=== PATIENT | male | born 1990 | race Caucasian/White ===

== ENCOUNTER → 2022-02-02 13:37 | Outpatient (CLI) | payer OTHER, SELFPAY ==
--- NOTE | ~2022-02-02 | XR_ITS ---
EXAMINATION: XR chest 2V DATE: 02/02/2022 14:09 INDICATION: Wheezing TECHNIQUE: PA and lateral views of the chest are obtained. COMPARISON: None available FINDINGS: The lungs are free of acute opacities. There is no pleural effusion or pneumothorax. The ca rdiomediastinal silhouette is normal. The visualized bones and soft tissues are unremarkable. IMPRESSION: 1. No acute cardiopulmonary abnormality. Reviewed, dictated and finalized at location F.
== END ==
DX: J45.909 Unspecified asthma, uncomplicated (principal)
CPT/HCPCS: 71046

== ENCOUNTER 2024-04-21 17:00 | Outpatient (CLI) | payer OTHER, SELFPAY ==
[2024-04-24 14:24] LABS: Homocysteine 8.1 umol/L (<11.4)
[2024-04-25 22:49] LABS: Antithrombin III Activity 116 % normal (80-135)
[2024-04-27 14:38] LABS: Protein S Antigen, Free 139 % normal (57-171)
[2024-04-27 20:13] LABS: Lupus dRVVT Screen 38 sec (< OR = 45); PTT-LA Screen 33 sec (< OR = 40)
[2024-04-28 13:47] LABS: PTT-LA Additional Testing Not Indicated
[2024-04-29 17:03] LABS: Factor V (Leiden) Mutation NEGATIVE
== END 2024-04-21 17:01 | disposition home or self-care (01) ==
LOC: ANHLAB 17:07
PROVIDERS: Visit Provider Internal Medicine Hematology & Oncology
DX: D68.69 Other thrombophilia (principal)
CPT/HCPCS: 36415; 81240; 81241; 83090; 85300; 85303; 85306; 85613; 85730; 86146

== ENCOUNTER 2024-06-23 04:53 | Emergency (ER) | payer SELFPAY ==
--- NOTE | ~2024-06-23 | CT_ITS ---
CT of the Abdomen and Pelvis: Indication: Abdominal pain Technique: 2.5 mm axial scans were obtained through the abdomen and pelvis following intravenous adm inistration of 100 cc of Omnipaque 350. Dose reduction technique was used on this scan by utilizing a utomated exposure control and iterative reconstruction technique. The dose-length product (DLP) was 1 086.40 mGy-cm. Findings: Scans through the lung bases are unremarkable. The liver, spleen, pancreas, gallbladder, adrenals and left kidney are within normal limits. There is a 5 mm stone at the proximal right ureter (axial image 90), with minimal fullness the right renal co llecting system. No evidence of aortic aneurysm. No lymphadenopathy. No bowel obstruction or bowel wall thickening. There is no evidence to suggest acute appendicitis. Images through the pelvis were performed. Urinary bladder unremarkable. No pelvic mass seen. No ascit es. Impression: 5 mm proximal right ureteral stone with mild fullness of the right renal collecting system. Reviewed, dictated and finalized at location . R SUPERVISOR Impression: 5 mm proximal right ureteral stone with mild fullness of the right renal collec ting system.
--- NOTE | 2024-06-23 05:00 | ED.GENADULT ---
HPI - General Adult General Chief complaint: Abdominal Pain Stated complaint: think it kidney stones Time Seen by Provider: 06/23/24 04:58 Source: patient and other Mode of arrival: ambulatory Limitations: no limitations History of Present Illness HPI narrative: Patient presents with acute onset right flank pain radiating into his right abdomen. He is concerned he has a kidney stone. He has a history of passing 1 kidney stone previously and states that it took approximately 1 week to pass. The has been having pain for approximately 1 prior to arrival. He tried taking a Flomax at home that was a friend's. He is experiencing 10 of 10 pain associated with nausea. He denies any dysuria or urinary urgency or frequency. He denies gross hematuria although he does note that his urine has been discolored. He has been having subjective fevers. Does not follow regularly with urologist. Last oral intake was soup at 10:00 p.m.. Not on anticoagulation. Last bowel movement was at 8:00 p.m. and he states he has been constipated but denies any diarrhea or bloody stools. Related Data Allergies Allergy/AdvReac Type Severity Reaction Status Date / Time No Known Allergies Allergy Unknown Unverified 07/11/15 02:23 [facility] Past Medical History Medical History History of renal calculi Exam Narrative: GENERAL: Well-appearing, well-nourished, and in no acute distress. HEAD: Normocephalic, atraumatic. EYES: Non injected, non icteric ENT: Nares clear, no rhinorrhea or epistaxis. NECK: Supple. CHEST: Speaking in full sentences. No respiratory distress. HEART: Regular rate and rhythm. . ABDOMEN: Soft, nondistended. Mild tenderness to palpation in the right upper and lower quadrants without rigidity or guarding. Not peritoneal /BACK: No CVA tenderness bilaterally EXTREMITIES: Normal range of motion. No lower extremity edema. SKIN: Warm, dry, no rash. NEURO: No focal deficits. Alert and oriented x3. PSYCH: Normal mood and affect. Course Vital Signs Vital signs: Vital Signs Temperature 97.4 F L 06/23/24 05:03 Pulse Rate 74 06/23/24 05:03 Respiratory Rate 14 06/23/24 05:03 Blood Pressure 142/90 H 06/23/24 05:03 Pulse Oximetry 98 06/23/24 05:03 Temperature 97.4 F L 06/23/24 05:03 Pulse Rate 70 06/23/24 07:06 Respiratory Rate 15 06/23/24 07:06 Blood Pressure 136/82 06/23/24 07:06 Pulse Oximetry 99 06/23/24 07:06 Medical Decision Making MDM Narrative Medical decision making narrative: Patient presents with unilateral flank pain. He is concerned about kidney stone as he has had 1 previously. In the emergency department he is afebrile with vital signs notable for mild hypertension. He is given narcotic analgesic medication as well as an antiemetic. He had already taken Flomax at home. He has a slight leukocytosis. Lipase is somewhat elevated although not greater than 3 times the upper limit of normal. He does have evidence of a ureteral stone as per below. Ketorolac ordered. Patient discharged with prescription for NSAID, Flomax, and Zofran. Advised to strain urine follow up with Urology and provided a referral for this. After discharge instructions have been printed, patient does ask the nurse about the stronger pain medicine. Confirmed his preferred pharmacy and a prescription for narcotic medication was electronically sent. Differential Diagnosis Differential Diagnosis: Kidney stone, pyelonephritis, constipation, biliary etiology, diverticulitis, pancreatitis Vital Signs Vital Signs: Vital Signs Temperature 97.4 F L 06/23/24 05:03 Pulse Rate 74 06/23/24 05:03 Respiratory Rate 14 06/23/24 05:03 Blood Pressure 142/90 H 06/23/24 05:03 Pulse Oximetry 98 06/23/24 05:03 Temperature 97.4 F L 06/23/24 05:03 Pulse Rate 70 06/23/24 07:06 Respiratory Rate 15 06/23/24 07:06 Blood Pressure 136/82 06/23/24 07:06 Pulse Oximetry 99 06/23/24 07:06 Lab Data Lab results reviewed: Yes I reviewed the patient's lab results. Lab results narrative: Hyperglycemia without anion gap acidosis 06/23/24 05:21 06/23/24 05:21 Labs: Lab Results 06/23/24 Range/Units 05:21 WBC 13.2 H (4.5-10.0) K/mm3 RBC 5.25 (4.6-6.20) M/mm3 Hgb 14.9 (14.0-18.0) g/dL Hct 45.3 (42.0-52.0) % MCV 86.3 (80-100) fl MCH 28.4 (26-34) pg MCHC 32.9 (32-36) g/dl RDW 12.8 (11.5-14.5) % Plt Count 351 (150-375) k/mm3 MPV 9.1 (7.4-10.4) fl Immature Gran % (Auto) 0.4 (0-0.5) % Neut % (Auto) 75.0 H (45.5-73.1) % Lymph % (Auto) 15.7 L (18.3-44.2) % [place] % (Auto) 7.2 (2.6-8.5) % Eos % (Auto) 1.2 (0-4.4) % Baso % (Auto) 0.5 (0.2-1.2) % Lymph # (Auto) 2.08 (0.9-3.2) K/mm3 [place] # (Auto) 1.0 H (0.1-0.6) K/mm3 Eos # (Auto) 0.2 (0-0.3) K/mm3 Baso # (Auto) 0.1 (0.0-0.1) K/mm3 Abs Immat Gran (auto) 0.05 H (0.00-0.031) K/mm3 Absolute Neuts (auto) 9.9 H (1.3-6.7) K/mm3 Absolute Nucleated RBC 0.000 (0.0-0.012) K/mm3 Nucleated RBC % 0.0 (0.0-0.2) % Sodium 137 (137-145) mmol/L Potassium 4.1 (3.4-5.0) mmol/L Chloride 101 (98-107) mmol/L Carbon Dioxide 27 (22-30) mmol/L Anion Gap 9 (4-12) mmol/L BUN 13 (9-20) mg/dL Creatinine 1.10 (0.7-1.3) mg/dL Estim Creat Clear Calc 101 ml/min Estimated GFR > 60 (59 - ) Glucose 154 H (65-110) mg/dL Calcium 9.1 (8.4-10.2) mg/dL Total Bilirubin 0.5 (0.2-1.3) mg/dL AST 25 (17-59) U/L ALT 20 (6-50) U/L Alkaline Phosphatase 115 (38-126) U/L Total Protein 9.0 H (6.3-8.2) g/dL Albumin 4.6 (3.5-5.1) g/dL Lipase 460 H (23-300) U/L Imaging Data Radiologist's impression: Impressions Abdomen/Pelvis CT 06/23/24 06:10 Impression: 5 mm proximal right ureteral stone with mild fullness of the right renal collecting system. Discharge Plan Discharge Clinical Impression: Right ureteral stone, Acute right flank pain, Leukocytosis, Hyperglycemia, Elevated lipase Patient Disposition: Home, Self-Care Condition: Stable Instructions: Antibiotic Form, How to Strain Your Urine (ED), Flank Pain (ED), Ureteral Stones (ED) Additional Instructions: You do have a 5 mm stone in the right ureter. Given its size and location you should be able to pass it without intervention. This process is helped along with a combination of the antinausea medication at oral disintegrating ondansetron/Zofran so that you can maintain your hydration and take the other medications. Ibuprofen is a nonsteroidal anti-inflammatory medication that works for both pain as well as inflammation and works at the kidney to help it flush. The Flomax/tamsulosin aids in expulsion. Strain your urine and can take the stone to follow up with the urologist listed below if you would like. Return to the ED if any new/worsening symptoms such as intractable pain, intractable nausea or vomiting, fever greater than 100.4? F, etc. Prescriptions: New ibuprofen 600 mg tablet 600 mg PO TID PRN (Reason: pain) Qty: 30 0RF ondansetron 4 mg tablet,disintegrating 4 mg PO Q8H PRN (Reason: nausea and vomiting) Qty: 10 0RF tamsulosin [Flomax] 0.4 mg capsule 0.4 mg PO HS Qty: 14 0RF hydrocodone-acetaminophen 5-325 mg tablet 1 tablet PO Q8H PRN (Reason: pain) Qty: 10 0RF Follow-up/Referrals: Blas Delacruz MD [Physician] - (urology) UNKNOWN,DOCTOR [Non-Staff] - Stand Alone Forms: Work/School Release IP Time of Disposition: 06:46
[2024-06-23 05:03] VITALS: BP 142/90; PULSE 74; RESP 14; TEMP 36.3; O2SAT 98
[2024-06-23] MEDS: ONDANSETRON INJ 4 MG/2 ML VIAL IV PUSH (05:10)
[2024-06-23] MEDS: MORPHINE SULFATE (*CRX) 4 MG/ML INJ IV PUSH (05:25)
[2024-06-23 05:29] LABS: Basophils Absolute Auto 0.1 K/mm3 (0.0-0.1); Basophils Percent Auto 0.5 % (0.2-1.2); Eosinophils Absolute Auto 0.2 K/mm3 (0-0.3); Eosinophils Percent Auto 1.2 % (0-4.4); Hematocrit 45.3 % (42.0-52.0); Hemoglobin 14.9 g/dL (14.0-18.0); Immature Granulocyte Absolute 0.05 K/mm3 (0.00-0.031); Immature Granulocyte Percent A 0.4 % (0-0.5); Lymphocytes Absolute Auto 2.08 K/mm3 (0.9-3.2); Lymphocytes Percent Auto 15.7 % (18.3-44.2); Mean Corpuscular HGB Conc 32.9 g/dl (32-36); Mean Corpuscular Hemoglobin 28.4 pg (26-34); Mean Corpuscular Volume 86.3 fl (80-100); Mean Platelet Volume 9.1 fl (7.4-10.4); Monocytes Percent Auto 7.2 % (2.6-8.5); Neutrophils Absolute Auto 9.9 K/mm3 (1.3-6.7); Platelet Count Result 351 k/mm3 (150-375); Red Blood Count 5.25 M/mm3 (4.6-6.20); Red Cell Distribution Width 12.8 % (11.5-14.5); White Blood Count 13.2 K/mm3 (4.5-10.0)
[2024-06-23 05:41] LABS: Alanine Aminotransferase 20 U/L (6-50); Albumin Level 4.6 g/dL (3.5-5.1); Alkaline Phosphatase 115 U/L (38-126); Anion Gap 9 mmol/L (4-12); Aspartate Amino Transferase 25 U/L (17-59); Bilirubin,Total 0.5 mg/dL (0.2-1.3); Blood Urea Nitrogen 13 mg/dL (9-20); Calcium 9.1 mg/dL (8.4-10.2); Carbon Dioxide 27 mmol/L (22-30); Chloride 101 mmol/L (98-107); Estimated CRCL calculation 101 ml/min; Estimated Glomerular Filt Rate > 60; Glucose 154 mg/dL (65-110); Lipase 460 U/L (23-300); Potassium 4.1 mmol/L (3.4-5.0); Sodium 137 mmol/L (137-145)
--- NOTE | 2024-06-23 06:30 | PC.NURSE ---
Pt has been asked 3 times to provide a urine sample and states he is unable to. States he will try in a little bit.
[2024-06-23] MEDS: KETOROLAC 15 MG/ML VIAL (*BKC) IV PUSH (07:02)
[2024-06-23 07:06] VITALS: BP 136/82; PULSE 70; RESP 15; O2SAT 99
== END 2024-06-23 07:08 | disposition home or self-care (01) ==
PROVIDERS: Emergency Provider Student in an Organized Health Care Education/Training Program
DX: N20.1 Calculus of ureter (principal); D72.829 Elevated white blood cell count, unspecified; R73.9 Hyperglycemia, unspecified; R74.01 Elevation of levels of liver transaminase levels
CPT/HCPCS: 36415; 74177; 80053; 83690; 85025; 96374; 96375; 99284; A9270; J1885; J2270; J2405; Q9967

== ENCOUNTER 2024-06-24 08:56 | Emergency (ER) | payer SELFPAY ==
--- NOTE | ~2024-06-24 | XR_ITS ---
XR abdomen/kub 1V Ordering provider: Loli Guerrero PA-C History: . ureterolithiasis, DX RT SIDE STONE YESTERDAY. PAIN WORSE NOW . Comparison: None. FINDINGS: BOWEL: Nonobstructive bowel gas pattern. ORGANOMEGALY: None. SIGNIFICANT PATHOLOGIC CALCIFICATIONS: Stone in the right renal pelvis or upper ureter area. OTHER: No free air is seen under the diaphragm. IMPRESSION: NO ACUTE ABDOMINAL FINDINGS. Stone in the right renal pelvis or upper ureter. Reviewed, dictated and finalized at location A. [employer]
[2024-06-24 08:56] VITALS: BP 150/105; PULSE 82; RESP 16; TEMP 37.2; O2SAT 97
--- NOTE | 2024-06-24 10:54 | ED_ITS ---
HPI - Male Genitourinary General Chief complaint: Urogenital-Male <Loli Guerrero PA-C - Last Filed: 06/24/24 17:31> Stated complaint: kidney stone <Loli Guerrero PA-C - Last Filed: 06/24/24 17:31> Time Seen by Provider: 06/24/24 10:54 <Loli Guererro PA-C - Last Filed: 06/24/24 17:31> Focused HPI: This is a 33 year old male that presents to the ER for right flank pain and right abdominal pain. Reports nausea and vomiting. Denies fevers, dysuria, hematuria, diarrhea. GENERAL: Well-appearing, well-nourished, and in no acute distress. HEAD: Normocephalic, atraumatic. CHEST: Clear to auscultation. ?No respiratory distress. HEART: Regular rate and rhythm.? NEURO: ?Alert and oriented x3. Patient screened in triage and initial orders placed.? ?Additional care and disposition to be based upon?diagnostic testing and treatment. <Loli Guerrero PA-C - Last Filed: 06/24/24 17:31> History of Present Illness HPI Narrative: I agree with the above HPI <Kai Herrera MD - Last Filed: 06/24/24 19:15> Related Data Allergies/Adverse reactions: Allergies Allergy/AdvReac Type Severity Reaction Status Date / Time Sulfa (Sulfonamide Allergy Hives Verified 06/24/24 12:18 Antibiotics) <Loli Guerrero PA-C - Last Filed: 06/24/24 17:31> Review of Systems Review of Systems: CONSTITUTIONAL: Denies fever GASTROINTESTINAL: Denies abdominal pain, nausea, vomiting GENITOURINARY: Denies dysuria or hematuria. <Loli Guerrero PA-C - Last Filed: 06/24/24 17:31> All systems reviewed & are unremarkable except as noted in HPI and below <Loli Guerrero PA-C - Last Filed: 06/24/24 17:31> PMFSH Past Medical History Medical History: Medical History History of renal calculi <Loli Guerrero PA-C - Last Filed: 06/24/24 17:31> Social History Social History: Social History (Updated 06/24/24 @ 17:30 by Loli Guerrero PA-C) Substance use: never <Loli Guerrero PA-C - Last Filed: 06/24/24 17:31> Exam Narrative: GENERAL: Well-appearing, well-nourished, and in no acute distress. HEAD: Normocephalic, atraumatic. EYES: EOMI. CHEST: Clear to auscultation. No respiratory distress. No wheezes rales or rhonchi HEART: Regular rate and rhythm. No murmur heard. Normal peripheral pulses. ABDOMEN: Soft, nontender, nondistended, normal active bowel sounds. EXTREMITIES: Normal range of motion. No edema. SKIN: Warm, dry, no rash. NEURO: No focal deficits. Alert and oriented x3. PSYCH: Normal mood and affect <Loli Guerrero PA-C - Last Filed: 06/24/24 17:31> Course Vital Signs Vital signs: Vital Signs Temperature 98.9 F 06/24/24 08:56 Pulse Rate 82 06/24/24 08:56 Respiratory Rate 16 06/24/24 08:56 Blood Pressure 150/105 H 06/24/24 08:56 Pulse Oximetry 97 06/24/24 08:56 Temperature 97.9 F 06/24/24 15:29 Pulse Rate 96 06/24/24 15:29 Respiratory Rate 15 06/24/24 15:29 Blood Pressure 134/90 06/24/24 15:29 Pulse Oximetry 96 06/24/24 15:29 <Loli Guerrero PA-C - Last Filed: 06/24/24 17:31> Vital Signs Temperature 98.9 F 06/24/24 08:56 Pulse Rate 82 06/24/24 08:56 Respiratory Rate 16 06/24/24 08:56 Blood Pressure 150/105 H 06/24/24 08:56 Pulse Oximetry 97 06/24/24 08:56 Temperature 97.9 F 06/24/24 15:29 Pulse Rate 96 06/24/24 15:29 Respiratory Rate 15 06/24/24 15:29 Blood Pressure 134/90 06/24/24 15:29 Pulse Oximetry 96 06/24/24 15:29 <Kai Herrera MD - Last Filed: 06/24/24 19:15> MDM - Male Genitourinary MDM Narrative Medical decision making narrative: 33-year-old male with recent diagnosis of a 5 mm right-sided ureteral calculi presented emergency department for evaluation for worsening pain and intractable nausea and vomiting. KUB does confirm that the patient still has stone in the proximal ureter. Patient did feel improved with rehydration and pain control in the emergency department. Patient was evaluated by urologic services and they do recommend that the patient returned on Saturday to be scoped. They recommend the patient be NPO after midnight. patient was well-appearing at time of discharge to the emergency department. <Kai Herrera MD - Last Filed: 06/24/24 19:15> Differential Diagnosis Differential diagnosis: Likely urinary tract infection, acute retention of urine and other <Kai Herrera MD - Last Filed: 06/24/24 19:15> Lab Data Attestation: I reviewed the patient's lab results. <Kai Herrera MD - Last Filed: 06/24/24 19:15> Result diagrams: 06/24/24 12:26 06/24/24 12:26 <Loli Guerrero PA-C - Last Filed: 06/24/24 17:31> Labs: Lab Results 06/24/24 Range/Units 12:26 WBC 20.2 H (4.5-10.0) K/mm3 RBC 5.28 (4.6-6.20) M/mm3 Hgb 15.3 (14.0-18.0) g/dL Hct 45.8 (42.0-52.0) % MCV 86.7 (80-100) fl MCH 29.0 (26-34) pg MCHC 33.4 (32-36) g/dl RDW 13.1 (11.5-14.5) % Plt Count 347 (150-375) k/mm3 MPV 9.0 (7.4-10.4) fl Immature Gran % (Auto) 0.4 (0-0.5) % Neut % (Auto) 89.2 H (45.5-73.1) % Lymph % (Auto) 4.7 L (18.3-44.2) % [place] % (Auto) 5.4 (2.6-8.5) % Eos % (Auto) 0.0 (0-4.4) % Baso % (Auto) 0.3 (0.2-1.2) % Lymph # (Auto) 0.95 (0.9-3.2) K/mm3 [place] # (Auto) 1.1 H (0.1-0.6) K/mm3 Eos # (Auto) 0.0 (0-0.3) K/mm3 Baso # (Auto) 0.1 (0.0-0.1) K/mm3 Abs Immat Gran (auto) 0.09 H (0.00-0.031) K/mm3 Absolute Neuts (auto) 18.0 H (1.3-6.7) K/mm3 Absolute Nucleated RBC 0.000 (0.0-0.012) K/mm3 Nucleated RBC % 0.0 (0.0-0.2) % Sodium 139 (137-145) mmol/L Potassium 4.5 (3.4-5.0) mmol/L Chloride 102 (98-107) mmol/L Carbon Dioxide 26 (22-30) mmol/L Anion Gap 11 (4-12) mmol/L BUN 16 (9-20) mg/dL Creatinine 1.20 (0.7-1.3) mg/dL Estim Creat Clear Calc 93 ml/min Estimated GFR > 60 (59 - ) Glucose 144 H (65-110) mg/dL Calcium 9.3 (8.4-10.2) mg/dL Total Bilirubin 0.5 (0.2-1.3) mg/dL AST 54 (17-59) U/L ALT 22 (6-50) U/L Alkaline Phosphatase 116 (38-126) U/L Total Protein 9.0 H (6.3-8.2) g/dL Albumin 5.0 (3.5-5.1) g/dL Urine Color Yellow (Yellow) Urine Appearance Turbid H (Clear) Urine pH 7.0 (5.0-9.0) Ur Specific [place] 1.025 (1.001-1.035) Urine Protein Trace (Negative) mg/dL Urine Glucose (UA) Negative (Negative) mg/dL Urine Ketones 3+ H (Negative) mg/dL Ur Blood (Man) 2+ H (Negative) Urine Nitrate Negative (Negative) Urine Bilirubin Negative (Negative) Urine Urobilinogen 0.2 (<2.0) mg/dL Leukocyte Esterase Rfl Negative (Negative) AMADOR/UL Urine RBC 51-100 H (0-2) /hpf Urine WBC 0-5 (0-3) /hpf Ur Squamous Epith Cells None seen (Few) /hpf Urine Bacteria None seen /hpf Urine Casts 0-2 <Loli Guerrero PA-C - Last Filed: 06/24/24 17:31> Lab Results 06/24/24 Range/Units 12:26 WBC 20.2 H (4.5-10.0) K/mm3 RBC 5.28 (4.6-6.20) M/mm3 Hgb 15.3 (14.0-18.0) g/dL Hct 45.8 (42.0-52.0) % MCV 86.7 (80-100) fl MCH 29.0 (26-34) pg MCHC 33.4 (32-36) g/dl RDW 13.1 (11.5-14.5) % Plt Count 347 (150-375) k/mm3 MPV 9.0 (7.4-10.4) fl Immature Gran % (Auto) 0.4 (0-0.5) % Neut % (Auto) 89.2 H (45.5-73.1) % Lymph % (Auto) 4.7 L (18.3-44.2) % [place] % (Auto) 5.4 (2.6-8.5) % Eos % (Auto) 0.0 (0-4.4) % Baso % (Auto) 0.3 (0.2-1.2) % Lymph # (Auto) 0.95 (0.9-3.2) K/mm3 [place] # (Auto) 1.1 H (0.1-0.6) K/mm3 Eos # (Auto) 0.0 (0-0.3) K/mm3 Baso # (Auto) 0.1 (0.0-0.1) K/mm3 Abs Immat Gran (auto) 0.09 H (0.00-0.031) K/mm3 Absolute Neuts (auto) 18.0 H (1.3-6.7) K/mm3 Absolute Nucleated RBC 0.000 (0.0-0.012) K/mm3 Nucleated RBC % 0.0 (0.0-0.2) % Sodium 139 (137-145) mmol/L Potassium 4.5 (3.4-5.0) mmol/L Chloride 102 (98-107) mmol/L Carbon Dioxide 26 (22-30) mmol/L Anion Gap 11 (4-12) mmol/L BUN 16 (9-20) mg/dL Creatinine 1.20 (0.7-1.3) mg/dL Estim Creat Clear Calc 93 ml/min Estimated GFR > 60 (59 - ) Glucose 144 H (65-110) mg/dL Calcium 9.3 (8.4-10.2) mg/dL Total Bilirubin 0.5 (0.2-1.3) mg/dL AST 54 (17-59) U/L ALT 22 (6-50) U/L Alkaline Phosphatase 116 (38-126) U/L Total Protein 9.0 H (6.3-8.2) g/dL Albumin 5.0 (3.5-5.1) g/dL Urine Color Yellow (Yellow) Urine Appearance Turbid H (Clear) Urine pH 7.0 (5.0-9.0) Ur Specific [place] 1.025 (1.001-1.035) Urine Protein Trace (Negative) mg/dL Urine Glucose (UA) Negative (Negative) mg/dL Urine Ketones 3+ H (Negative) mg/dL Ur Blood (Man) 2+ H (Negative) Urine Nitrate Negative (Negative) Urine Bilirubin Negative (Negative) Urine Urobilinogen 0.2 (<2.0) mg/dL Leukocyte Esterase Rfl Negative (Negative) AMADOR/UL Urine RBC 51-100 H (0-2) /hpf Urine WBC 0-5 (0-3) /hpf Ur Squamous Epith Cells None seen (Few) /hpf Urine Bacteria None seen /hpf Urine Casts 0-2 <Kai Herrera MD - Last Filed: 06/24/24 19:15> Imaging Data Radiologist's impression: ITS Impressions Abdomen X-Ray 06/24/24 12:12 IMPRESSION: NO ACUTE ABDOMINAL FINDINGS. Stone in the right renal pelvis or upper ureter. <Loli Guerrero PA-C - Last Filed: 06/24/24 17:31> Critical Care Time Critical Care Time Critical Care Time: No <Loli Guerrero PA-C - Last Filed: 06/24/24 17:31> Discharge Plan Discharge Clinical Impression: Calculi, ureter <MANPREET Fountain Last Filed: 06/24/24 17:31> Patient Disposition: Home, Self-Care <MANPREET Fountain Last Filed: 06/24/24 17:31> Condition: Stable <MANPREET Fountain Last Filed: 06/24/24 17:31> Instructions: Antibiotic Form <MANPREET Fountain Last Filed: 06/24/24 17:31> Additional Instructions: avoid NSAIDs. Robertson for pain control. Zofran as needed for nausea control. you are being scheduled for a procedure on Saturday. if you have any worsening symptoms then please call or return to the emergency department. <Loli Guerrero PA-C - Last Filed: 06/24/24 17:31> Prescriptions: New hydrocodone-acetaminophen 5-325 mg tablet 1 tablet PO Q12H PRN (Reason: pain) Qty: 20 0RF ondansetron 4 mg tablet,disintegrating 4 mg PO Q8H PRN (Reason: nausea and vomiting) Qty: 20 0RF No Action ibuprofen 600 mg tablet 600 mg PO TID PRN (Reason: pain) Qty: 30 0RF ondansetron 4 mg tablet,disintegrating 4 mg PO Q8H PRN (Reason: nausea and vomiting) Qty: 10 0RF tamsulosin [Flomax] 0.4 mg capsule 0.4 mg PO HS Qty: 14 0RF hydrocodone-acetaminophen 5-325 mg tablet 1 tablet PO Q8H PRN (Reason: pain) Qty: 10 0RF <Loli Guerrero PA-C - Last Filed: 06/24/24 17:31> Follow-up/Referrals: Justin Jasso MD [Physician] - PHYSICIAN,BACKREST ASSEMBLER [Primary Care Provider] - <MANPREET Fountain Last Filed: 06/24/24 17:31>
[2024-06-24 12:17] VITALS: BP 145/92; PULSE 76; RESP 14; TEMP 36.4; O2SAT 100
[2024-06-24] MEDS: SODIUM CHLORIDE 0.9% IV 1,000 ML 999 ML IV CONT (12:28)
[2024-06-24] MEDS: ONDANSETRON INJ 4 MG/2 ML VIAL IV PUSH ×2 (12:29→13:04)
[2024-06-24] MEDS: MORPHINE SULFATE (*CRX) 4 MG/ML INJ IV PUSH (12:30)
[2024-06-24 12:42] LABS: Add Urine Microscopic? YES; Appearance Urine Turbid (Clear); Bacteria Urine None Seen /hpf; Bilirubin Urine Negative (Negative); Blood Urine 2+ (Negative); Color Urine Yellow (Yellow); Glucose Urine UA Negative (Negative); Ketones Urine 3+ mg/dL (Negative); Leukocyte Esterase Ur Negative LEU/UL (Negative); Nitrate Urine Negative (Negative); Non Pathogenic Casts 0-2; Protein Urine Trace mg/dL (Negative); RBC Urine 51-100 /hpf (0-2); Specific Grav Ur 1.025 (1.001-1.035); Squamous Epithelial Cell Urine None Seen /hpf (Few); Urobilinogen Urine 0.2 mg/dL (<2.0); WBC Urine 0-5 /hpf (0-3)
[2024-06-24 12:45] LABS: Basophils Absolute Auto 0.1 K/mm3 (0.0-0.1); Basophils Percent Auto 0.3 % (0.2-1.2); Hematocrit 45.8 % (42.0-52.0); Hemoglobin 15.3 g/dL (14.0-18.0); Immature Granulocyte Absolute 0.09 K/mm3 (0.00-0.031); Immature Granulocyte Percent A 0.4 % (0-0.5); Lymphocytes Absolute Auto 0.95 K/mm3 (0.9-3.2); Lymphocytes Percent Auto 4.7 % (18.3-44.2); Mean Corpuscular HGB Conc 33.4 g/dl (32-36); Mean Corpuscular Volume 86.7 fl (80-100); Monocytes Absolute Auto 1.1 K/mm3 (0.1-0.6); Monocytes Percent Auto 5.4 % (2.6-8.5); Neutrophils Percent Auto 89.2 % (45.5-73.1); Platelet Count Result 347 k/mm3 (150-375); Red Blood Count 5.28 M/mm3 (4.6-6.20); Red Cell Distribution Width 13.1 % (11.5-14.5); White Blood Count 20.2 K/mm3 (4.5-10.0)
[2024-06-24 12:46] VITALS: BP 145/92; PULSE 78; RESP 14; O2SAT 98
[2024-06-24 12:51] LABS: Alanine Aminotransferase 22 U/L (6-50); Alkaline Phosphatase 116 U/L (38-126); Anion Gap 11 mmol/L (4-12); Aspartate Amino Transferase 54 U/L (17-59); Bilirubin,Total 0.5 mg/dL (0.2-1.3); Blood Urea Nitrogen 16 mg/dL (9-20); Calcium 9.3 mg/dL (8.4-10.2); Carbon Dioxide 26 mmol/L (22-30); Chloride 102 mmol/L (98-107); Estimated CRCL calculation 93 ml/min; Estimated Glomerular Filt Rate > 60; Glucose 144 mg/dL (65-110); Potassium 4.5 mmol/L (3.4-5.0); Sodium 139 mmol/L (137-145)
[2024-06-24] MEDS: HYDROmorphone HCL INJ (*CRX) 1 MG/ML SYR IV PUSH ×2 (13:05→15:19)
[2024-06-24 13:31] VITALS: BP 137/89; PULSE 84; RESP 15; O2SAT 94
[2024-06-24 13:45] VITALS: BP 145/94; PULSE 98; RESP 17; O2SAT 94
--- NOTE | 2024-06-24 14:37 | WPDURCON ---
Assessment and Plan Assessment and plan (1) Acute right flank pain: Code(s): R10.9 - Unspecified abdominal pain Status: Inactive (2) Right ureteral stone: Code(s): N20.1 - Calculus of ureter Status: Inactive Plan This is a 33-year-old gentleman with a 5mm right UPJ stone. He has associated nausea vomiting. Patient with an elevated white blood cell count however no other significant signs of infection (no fevers chills hypotension). -options, risks, benefits, alternatives discussed. -patient to be discharged home today. We will plan for outpatient ESWL. -will call patient, but will hopefully plan for procedure on Saturday. Patient instructed to hold all aspirin and nonsteroidal anti-inflammatories. Urology Consult Note HPI Date Seen: 06/24/24 Primary Care Provider: VESSEL SCRAPPER HELPER PHYSICIAN Consult Narrative Narrative: [place] is a 33 year old male who presented to the ER yesterday with acute flank pain nausea and vomiting and found on CT scan to have right-sided proximal ureteral stone. Patient was discharged home with trial of passage, however had persistent nausea and vomiting and pain and re-presented to the emergency department today. The patient was given fluid resuscitation and is feeling better now. [facility] Past Medical History Medical History History of renal calculi Meds Home Medications and Allergies Home Medications Medication Instructions Recorded Confirmed Type hydrocodone 5 mg-acetaminophen 325 1 tablet PO Q8H PRN pain #10 tabs 06/23/24 Rx mg tablet ibuprofen 600 mg tablet 600 mg PO TID PRN pain #30 tabs 06/23/24 Rx ondansetron 4 mg disintegrating 4 mg PO Q8H PRN nausea and 06/23/24 Rx tablet vomiting #10 tabs tamsulosin 0.4 mg capsule (Flomax) 0.4 mg PO HS #14 caps 06/23/24 Rx hydrocodone 5 mg-acetaminophen 325 1 tablet PO Q12H PRN pain #20 tabs 06/24/24 Rx mg tablet ondansetron 4 mg disintegrating 4 mg PO Q8H PRN nausea and 06/24/24 Rx tablet vomiting #20 tabs Allergies Allergy/AdvReac Type Severity Reaction Status Date / Time Sulfa (Sulfonamide Allergy Hives Verified 06/24/24 12:18 Antibiotics) Vital Signs Vital Signs - 24 hr 06/24/24 08:56 06/24/24 12:17 06/24/24 12:46 Temperature 37.2 C 36.4 C Pulse Rate 82 76 78 Respiratory Rate 16 14 14 Blood Pressure 150/105 H 145/92 H 145/92 H Pulse Oximetry 97 100 98 06/24/24 13:31 06/24/24 13:45 Temperature Pulse Rate 84 98 Respiratory Rate 15 17 Blood Pressure 137/89 145/94 H Pulse Oximetry 94 94 Exam Narrative: Patient awake and alert. No acute distress. Breathing unlabored. Abdomen soft nontender nondistended Results Labs 06/24/24 12:26 06/24/24 12:26 Labs: Short CBC 06/24/24 Range/Units 12:26 WBC 20.2 H (4.5-10.0) K/mm3 Hgb 15.3 (14.0-18.0) g/dL Hct 45.8 (42.0-52.0) % Plt Count 347 (150-375) k/mm3 BMP 06/24/24 12:26 Sodium 139 Potassium 4.5 Chloride 102 Carbon Dioxide 26 BUN 16 Creatinine 1.20 Glucose 144 H Calcium 9.3 Liver Function 06/24/24 Range/Units 12:26 Total Bilirubin 0.5 (0.2-1.3) mg/dL AST 54 (17-59) U/L ALT 22 (6-50) U/L Alkaline Phosphatase 116 (38-126) U/L Albumin 5.0 (3.5-5.1) g/dL Urine 06/24/24 Range/Units 12:26 Urine Color Yellow (Yellow) Urine Appearance Turbid H (Clear) Urine pH 7.0 (5.0-9.0) Ur Specific [place] 1.025 (1.001-1.035) Urine Protein Trace (Negative) mg/dL Urine Glucose (UA) Negative (Negative) mg/dL Ordering Physician: Luisa Kaye MD Date of Service: 06/23/24 Procedure(s): CT abdomen pelvis w con Accession Number(s): [id number] cc: Luisa Kaye MD; VESSEL SCRAPPER HELPER PHYSICIAN~ CT of the Abdomen and Pelvis: Indication: Abdominal pain Technique: 2.5 mm axial scans were obtained through the abdomen and pelvis following intravenous administration of 100 cc of Omnipaque 350. Dose reduction technique was used on this scan by utilizing automated exposure control and iterative reconstruction technique. The dose-length product (DLP) was 1086.40 mGy-cm. Findings: Scans through the lung bases are unremarkable. The liver, spleen, pancreas, gallbladder, adrenals and left kidney are within normal limits. There is a 5 mm stone at the proximal right ureter (axial image 90), with minimal fullness the right renal collecting system. No evidence of aortic aneurysm. No lymphadenopathy. No bowel obstruction or bowel wall thickening. There is no evidence to suggest acute appendicitis. Images through the pelvis were performed. Urinary bladder unremarkable. No pelvic mass seen. No ascites. Impression: 5 mm proximal right ureteral stone with mild fullness of the right renal collecting system. Reviewed, dictated and finalized at [facility]. PAINTER
[2024-06-24] MEDS: HYDROcodone/acetaminophen (*CRX) 5-325 MG TABLET 1 TAB PO (15:18)
[2024-06-24 15:29] VITALS: BP 134/90; PULSE 96; RESP 15; TEMP 36.6; O2SAT 96
== END 2024-06-24 15:30 | disposition home or self-care (01) ==
PROVIDERS: Physician Assistant; Emergency Provider Emergency Medicine
DX: N20.1 Calculus of ureter (principal)
CPT/HCPCS: 36415; 74018; 80053; 81001; 85025; 96361; 96374; 96375; 96376; 99284; A9270; J1171; J2270; J2405; J7030

== ENCOUNTER 2024-06-26 06:08 | Day surgery (SDC) | payer SELFPAY ==
[2024-06-25 08:22] VITALS: BMI 28.1
--- NOTE | 2024-06-25 08:24 | PC.NURSE ---
Report to the Outpatient Waiting Room, entrance under the green pavilion located off [facility], at time _1000_ on date _[phone]_. Planned Procedure Time: _1200_.? Time changes happen often and if your time is changed the preop area will call you the afternoon before. - You and your visitor will be asked to self-screen and do not enter if you have any COVID symptoms. Please call surgeon if you need to reschedule. - A mask is optional within the hospital at this time. Patients may have clear liquids (water, carbonated beverages, clear teas, apple juice) until 3 hours prior to surgery with a maximum of 20 ounces. - No food from midnight until time of surgery and no smoking Take only the following medications with a SIP of water on the morning of surgery: Pain or nausea medication.__ DO NOT STOP ANY OF YOUR OTHER PRESCRIPTION MEDICATIONS PRIOR TO SURGERY EXCEPT THE FOLLOWING Medications to discontinue per physician Hold Ibuprofen as you were instructed to do. Please no make-up, nail maori, hairspray, perfume, deodorant, or body powder the day of surgery.? No jewelry (including any body piercings) or valuables the day of surgery, leave them at home.? Please take a shower or bath the night before, or the morning of, surgery with an antibacterial soap.? Wear comfortable, loose fitting clothing.? - Jewelry must be removed prior to entering the operating room.? Rings and piercings that are not removed may be cut off. - The hospital will not accept responsibility for valuables.? - Please leave all valuables, including medications, at home the day of surgery. If you are going home after surgery, a licensed line driver must drive you home.? - NO public transportation without another adult if you receive anesthesia. - We recommend that an adult stay with you for 24 hours following discharge. - We also recommend that you do not drive, make important decision, drink alcoholic beverages, or take any drugs that were not prescribed by your health care provider for at least 24 hours after your discharge time. Follow any additional instructions given to you from your surgeon. Telephone instructions given to _Rancho_and asked if any additional questions and then verbalized understanding. Patient advised to call surgeon office or pre surgery nurse liaison [phone] if any additional questions.
[2024-06-26] VITALS (9 sets, daily range): BP systolic 121–141; BP diastolic 78–106; PULSE 72–92; RESP 16–20; TEMP 36.6–36.8; O2SAT 96–100
--- NOTE | ~2024-06-26 | XR_ITS ---
EXAMINATION: XR abdomen/kub 1V DATE: 06/26/2024 10:16 INDICATION: Kidney stone. TECHNIQUE: A supine view of the abdomen on 2 radiographs was obtained. COMPARISON: CT abdomen and pelvis 06/23/2024 FINDINGS: There are no dilated loops of bowel. There are phleboliths in right pelvis. There is a 4 mm stone in proximal right ureter at L2-L3. IMPRESSION: 1. Stable 4 mm stone in proximal right ureter. Reviewed, dictated and finalized at location A. [employer]
--- NOTE | 2024-06-26 06:09 | WPDHPUPDATE1 ---
History and Physical Update Update Date/Time: 06/26/24 06:09 History and Physical has been reviewed, including an updated exam of the patient. There are NO changes in the patient's condition. Risks, benefits, and alternatives have been discussed and questions answered. Patient agrees to proceed with procedure.
--- NOTE | 2024-06-26 07:34 | P.HP_ITS ---
History of Present Illness History of Present Illness Consent: Risks, benefits, and alternatives have been discussed and questions answered. Patient agrees to proceed with procedure. Chief complaint: right kidney stone Narrative: Rancho Mckenzie is a 33 year old male without prior significant urological history until he recently presented the ER with right flank pain and was found have an obstructing 5 mm right proximal ureteral stone. He was discharged with plans for outpatient ESWL. He is aware the risk including, limited to, need for additional procedures, hematuria and perinephric hematoma Review of Systems Cardiovascular: Cardiovascular: Denies chest pain, Denies lightheadedness, Denies palpitations and Denies dyspnea Respiratory: Respiratory: Denies dyspnea Gastrointestinal: Gastrointestinal: Denies diarrhea, Denies nausea and Denies vomiting Genitourinary: Genitourinary: Denies hematuria and Denies dysuria Endocrine: Endocrine: Denies palpitations [facility] Past Medical History Medical History History of renal calculi Social History Social History (Updated 06/24/24 @ 17:30 by Loli Guerrero PA-C) Years smoked: 10 Smoking status: Former smoker Tobacco type: cigarettes and e-cigarettes/vaping Smoking end date: 06/25/23 Alcohol intake: current Substance use: never Substance use type: marijuana Other substance usage details: daily Living arrangements: with family Spiritual care concerns: No Meds Home Medications and Allergies Home Medications Medication Instructions Recorded Confirmed Type hydrocodone 5 mg-acetaminophen 325 1 tablet PO Q8H PRN pain #10 tabs 06/23/24 06/25/24 Rx mg tablet ibuprofen 600 mg tablet 600 mg PO TID PRN pain #30 tabs 06/23/24 06/25/24 Rx ondansetron 4 mg disintegrating 4 mg PO Q8H PRN nausea and 06/23/24 06/25/24 Rx tablet vomiting #10 tabs tamsulosin 0.4 mg capsule (Flomax) 0.4 mg PO HS #14 caps 06/23/24 06/25/24 Rx Allergies Allergy/AdvReac Type Severity Reaction Status Date / Time Sulfa (Sulfonamide Allergy Hives Verified 06/25/24 08:12 Antibiotics) Exam Const: General: no acute distress Resp: Effort & Inspection: normal respiratory effort GI: Inspection: non-distended GI Palp: No abdominal tenderness and No Guarding due to palpation present (GI) Auscultation: normal bowel sounds Assessment and Plan Assessment and plan (1) Right ureteral calculus: Code(s): N20.1 - Calculus of ureter Status: Acute Assessment and Plan: * Right ESWL
[2024-06-26] MEDS: LACTATED RINGERS 1,000 ML 30 ML IV CONT (10:40)
[2024-06-26 11:04] LABS: Prothrombin Time 13.4 Seconds (11.1-14.7)
--- NOTE | 2024-06-26 11:04 | P.PNAN_ITS ---
Anes - Initial Pre Proc Eval Procedure: Operation Date: 06/26/24 12:00 Proposed Procedures p Right Extracorporeal Shock Wave Lithotripsy - Joey Dumas MD Date/Time: 06/26/24 11:04 Surgeon: Joey Dumas MD Pre Op Diagnosis: right kidney stone Patient Data Age: 33 Gender: M Height: 1.91 m Weight: 101 kg Last Vital Signs Temp 36.8 C 06/26/24 10:51 Pulse 92 06/26/24 10:51 Resp 16 06/26/24 10:51 BP 136/101 H 06/26/24 10:51 Pulse Ox 96 06/26/24 10:51 O2 Del Method Room Air 06/26/24 10:51 Allergies Allergy/AdvReac Type Severity Reaction Status Date / Time Sulfa (Sulfonamide Allergy Hives Verified 06/26/24 10:32 Antibiotics) tamsulosin [From Flomax] AdvReac Vomiting Verified 06/26/24 10:33 Home Medications Medication Instructions Recorded Confirmed Type hydrocodone 5 mg-acetaminophen 325 1 tablet PO Q8H PRN pain #10 tabs 06/23/24 06/26/24 Rx mg tablet ibuprofen 600 mg tablet 600 mg PO TID PRN pain #30 tabs 06/23/24 06/25/24 Rx ondansetron 4 mg disintegrating 4 mg PO Q8H PRN nausea and 06/23/24 06/26/24 Rx tablet vomiting #10 tabs Laboratory Tests 06/26/24 10:38 WBC Pending RBC Pending Hgb Pending Hct Pending MCV Pending MCH Pending MCHC Pending RDW Pending Plt Count Pending MPV Pending PT Pending INR Pending APTT Pending Patient hx anesthesia problems: none Family hx anesthesia problems: none Results Review: All pre-operative results and documents have been reviewed as part of the pre- operative evaluation. [facility] Past Medical History Medical History (Updated 06/26/24 @ 11:04 by Ajit Looney MD) History of renal calculi JUSTIN (obstructive sleep apnea) Overweight Social History Social History Years smoked: 10 Smoking status: Former smoker Tobacco type: cigarettes and e-cigarettes/vaping Smoking end date: 06/25/23 Alcohol intake: current Substance use: never Substance use type: marijuana Other substance usage details: daily Living arrangements: with family Spiritual care concerns: No Anes - Eval Final PreProcedure Day of Procedure 06/26/24 11:04 Patient weight: overweight Heart: regular rate and rhythm Lungs: clear to auscultation Airway: Mallampati scale class II and special considerations poor dentition Neurological: alert and oriented Last oral intake: >/= 8 hours ASA classification: II Emergent: no Anesthetic plan: proceed Anesthesia type and monitoring: general LMA and standard monitoring Results Review: All pre-operative results and documents have been reviewed as part of the pre- operative evaluation. Informed Consent: The patient's anesthetic plan and its attendant risks and benefits were disc ussed with the patient/family/POA. Questions were solicited and answers provided to the satisfaction of the patient/family/POA.
[2024-06-26 11:05] LABS: Partial Thromboplastin Time 30.1 Seconds (22.3-36.8)
[2024-06-26 11:07] LABS: Hematocrit 43.7 % (42.0-52.0); Hemoglobin 14.5 g/dL (14.0-18.0); Mean Corpuscular HGB Conc 33.2 g/dl (32-36); Mean Corpuscular Hemoglobin 28.8 pg (26-34); Mean Corpuscular Volume 86.9 fl (80-100); Mean Platelet Volume 8.6 fl (7.4-10.4); Platelet Count Result 321 k/mm3 (150-375); Red Blood Count 5.03 M/mm3 (4.6-6.20); Red Cell Distribution Width 12.7 % (11.5-14.5); White Blood Count 11.1 K/mm3 (4.5-10.0)
[2024-06-26] MEDS: ceFAZolin 2 GM/D5W 50 ML 2 GM/50 ML BAG IVPB (11:25)
--- NOTE | 2024-06-26 11:39 | W.PM.PROC2 ---
Procedure Note - Detailed Date of Procedure 06/26/24 Pre-op Diagnosis Right ureteral stone Post-op Diagnosis Same Procedure Performed Right ESWL Surgeon Joey Dumas MD Anesthesia General Description of Procedure The patient was brought to the operative suite where he was placed in the supine position on the Dornier lithotripsy table. The focal point of the lithotripter was placed at a 5mm right proximal ureteral calculus. A total of 3000 shocks were delivered at a power setting of 5. There appeared to be good fragmentation of the stone. The patient tolerated the procedure well and was taken to the recovery room in good condition. Packing No Pathology None sent Complications No immediate complications Condition Stable
[2024-06-26] MEDS: ONDANSETRON INJ 4 MG/2 ML VIAL IV PUSH (12:36)
[2024-06-26] MEDS: oxyCODONE HCL (*CRX) 5 MG TAB IR PO (13:02)
== END 2024-06-26 14:04 | disposition home or self-care (01) ==
PROVIDERS: Visit Provider Urology
PROC: (CPT 50590; principal; 2024-06-26 12:00)
DX: N20.1 Calculus of ureter (principal); G47.33 Obstructive sleep apnea (adult) (pediatric); F12.90 Cannabis use, unspecified, uncomplicated; Z79.891 Long term (current) use of opiate analgesic; Z79.1 Long term (current) use of non-steroidal anti-inflammatories (NSAID); Z87.891 Personal history of nicotine dependence
CPT/HCPCS: 50590; 36415; 74018; 85027; 85610; 85730; A9270; J0690; J1100; J2405; J2704; J7120